=== PATIENT | male | born 1970 | race Caucasian/White ===

== ENCOUNTER → 2017-04-21 | Outpatient (CLI) | payer BC, OTHER ==
[~2017-04-21] MED LIST: MOTRIN 200200 MG/TAB PO; MULTIVITAMIN1 CTB PO
== END ==
LOC: SUN.DIA 09:31
DX: E11.9 Type 2 diabetes mellitus without complications (principal); Z79.4 Long term (current) use of insulin; E78.5 Hyperlipidemia, unspecified; Z68.27 Body mass index [BMI] 27.0-27.9, adult; Z71.3 Dietary counseling and surveillance; Z87.891 Personal history of nicotine dependence
CPT/HCPCS: G0108

== ENCOUNTER → 2017-06-02 | Outpatient (CLI) | payer BC, OTHER | LOC: SUN.DIA 05-03 14:24 | DX: E11.9 Type 2 diabetes mellitus without complications (principal); Z79.4 Long term (current) use of insulin; E78.5 Hyperlipidemia, unspecified; Z68.27 Body mass index [BMI] 27.0-27.9, adult; Z71.3 Dietary counseling and surveillance; F17.210 Nicotine dependence, cigarettes, uncomplicated | CPT/HCPCS: G0108 ==

== ENCOUNTER → 2017-07-14 | Outpatient (CLI) | payer BC, OTHER | LOC: SUN.DIA 10:10 | DX: E11.9 Type 2 diabetes mellitus without complications (principal); Z79.4 Long term (current) use of insulin; E78.5 Hyperlipidemia, unspecified; Z68.28 Body mass index [BMI] 28.0-28.9, adult; Z71.3 Dietary counseling and surveillance; Z87.891 Personal history of nicotine dependence | CPT/HCPCS: G0108 ==

== ENCOUNTER → 2017-09-15 | Outpatient (CLI) | payer BC, OTHER | LOC: SUN.DIA 13:30 | DX: E11.9 Type 2 diabetes mellitus without complications (principal); Z79.4 Long term (current) use of insulin; E78.5 Hyperlipidemia, unspecified; Z71.3 Dietary counseling and surveillance; F17.210 Nicotine dependence, cigarettes, uncomplicated | CPT/HCPCS: G0108 ==

== ENCOUNTER → 2017-10-13 | Outpatient (CLI) | payer BC, OTHER | LOC: SUN.DIA 10:52 | DX: E11.9 Type 2 diabetes mellitus without complications (principal); Z79.4 Long term (current) use of insulin; E78.5 Hyperlipidemia, unspecified; Z68.29 Body mass index [BMI] 29.0-29.9, adult; Z71.3 Dietary counseling and surveillance; F17.210 Nicotine dependence, cigarettes, uncomplicated | CPT/HCPCS: G0108 ==

== ENCOUNTER → 2017-11-17 | Outpatient (CLI) | payer BC, OTHER | LOC: SUN.DIA 14:29 | DX: E11.9 Type 2 diabetes mellitus without complications (principal); E78.5 Hyperlipidemia, unspecified; Z68.29 Body mass index [BMI] 29.0-29.9, adult; Z71.3 Dietary counseling and surveillance; F17.210 Nicotine dependence, cigarettes, uncomplicated | CPT/HCPCS: G0108 ==

== ENCOUNTER → 2021-06-01 | Outpatient (CLI) | payer OTHER | LOC: COL.RAD 12:18 | DX: S63.501A Unspecified sprain of right wrist, initial encounter (principal); M19.031 Primary osteoarthritis, right wrist | CPT/HCPCS: A9585; Q9967 ==

== ENCOUNTER 2022-03-17 09:28 | Day surgery (SDC) | payer BC ==
[~2022-03-17] VITALS: Ht 185.5 cm; Wt 114.8 kg
[2022-03-17] VITALS (15 sets, daily range): BP systolic 119–167; BP diastolic 78–95; PULSE 89–101; TEMP 97.7–98.1
[2022-03-17 10:34] LABS: HEMATOCRIT 44.3 % (42.0-52.0); MEAN CELL VOLUME 91 fl (80.0-100.0); MEAN CORPUSCULAR HEMOGLOBIN 31 pg (27-31); MEAN CORPUSCULAR HGB CONC 34 g/dl (33.0-37.0); MEAN PLATELET VOLUME 10.5 fl (7.4-10.4); PLATELET COUNT 198 K/mm3 (130-400); RED BLOOD COUNT 4.85 M/mm3 (4.20-5.60); REDCELL DISTRIBUTION WIDTH-CV 12.5 % (11.5-14.5)
[2022-03-17] MEDS ORDERED: ASPIRIN E.C. 8181 MG PO (10:38)
[2022-03-17] MEDS ORDERED: TOPROL XL 25MG25 MG PO (10:38)
[2022-03-17] MEDS ORDERED: LIPITOR 40MG TA40 MG PO (10:39)
[2022-03-17] MEDS ORDERED: NEURONTIN600 MG/TAB PO (10:40)
[2022-03-17] MEDS ORDERED: RYBELSUS14 MG PO (10:40)
[2022-03-17] MEDS ORDERED: GLUCOPHAGE500 MG/TAB PO (10:41)
[2022-03-17] MEDS ORDERED: LEVEMIR FLEX100 U/ML SQ (10:42)
[2022-03-17 10:43] LABS: CALCIUM 9.7 mg/dL (8.4-10.2); CREATININE, serum 1.09 mg/dL (0.72-1.25); POTASSIUM 4.7 mmol/L (3.5-4.5)
[2022-03-17] MEDS ORDERED: INSULIN AS100 UNIT/3 SQ (10:44)
[2022-03-17] MEDS ORDERED: PRINIVIL5 MG PO (10:45)
[2022-03-17 10:57] LABS: PARTIAL THROMBOPLASTIN TIME 30.4 SECONDS (26.0-37.0)
--- NOTE | 2022-03-17 10:58 | NUR ---
PT LEFT WITH JENNA SUPERVISOR SUNGLASSES RN. PT LEFT IN EU BED, FOLLOWED BY TO WAITING ROOM.
--- NOTE | 2022-03-17 12:00 | NUR ---
PT ARRIVED BACK IN ROOM. RESUMED CARE FROM JENNA CRAMER.
--- NOTE | 2022-03-17 17:01 | NUR ---
PT EDUCATED FOR DISCHARGE. PT TR BAND HAS BEEN OFF FOR APPROX AN HOUR WITHOUT SIGNS OF BLEEDING. BANDAID PLACED OVER SITE. PT INSTRUCTED NOT TO USE RIGHT HAND FOR 24-48 HOURS. PT LEAVING WITH .
--- NOTE | 2022-03-17 17:30 | NUR ---
I assumed care of pt at 1700. I reviewed instructions with pt and , who verbalized understanding. Work note to release pt from work on 03/18 and 03/[address] Krause. Pt was escorted to exit via wheelchair at 1730
== END 2022-03-17 17:35 | disposition home or self-care (01) ==
LOC: COL.CAR 09:28
PROVIDERS: Internal Medicine Cardiovascular Disease
DX: I25.10 Atherosclerotic heart disease of native coronary artery without angina pectoris (principal); I08.3 Combined rheumatic disorders of mitral, aortic and tricuspid valves; Z87.891 Personal history of nicotine dependence; E11.42 Type 2 diabetes mellitus with diabetic polyneuropathy; Z79.4 Long term (current) use of insulin; E66.9 Obesity, unspecified
CPT/HCPCS: C1769; J1644; J2250; J2704; J3010